=== PATIENT | male | born 1965 | race Caucasian/White ===

== ENCOUNTER → 2020-07-05 | Outpatient (CLI) | payer SELFPAY ==
[2020-07-05 09:59] LABS: HCT 48.4 % (39.0-53.0); HGB 15.5 gm/dL (13.0-17.5); MCH 29.1 pg (25.0-35.0); MCHC 32.1 g/dL (31.0-37.0); MCV 90.5 fL (80.0-100.0); Mean Platelet Volume 6.8; Platelet Count 209 k/uL (150-450); RBC 5.34 m/uL (4.30-5.90); RDW 13.5 % (11.5-15.5); WBC 8.2 k/uL (3.8-10.6)
== END | disposition home or self-care (01) ==
LOC: LABWHC1 08:43
PROVIDERS: ATTEND Surgery
DX: Z01.818 Encounter for other preprocedural examination (principal)
CPT/HCPCS: 36415; 85027

== ENCOUNTER 2020-07-11 09:01 | Day surgery (SDC) | payer OTHER ==
[2020-07-04 13:38] VITALS: BMI 33.5
[~2020-07-11 09:01] MED LIST: ACETAMINOPHEN TAB 500 MG TAB PO ONE; DEXAMETHASONE SOD PHOSPHATE 10 MG/ML 1 ML VIAL IV ONE; HEPARIN SODIUM,PORCINE 5,000 UNIT/ML 1 ML VIAL SQ ONE; LACTATED RINGERS 1,000 ML IV SCH; MIDAZOLAM 2 MG/2 ML VIAL IV PRN; SCOPOLAMINE 1.5MG/72HR PATCH TRANSDERM ONE
[2020-07-11] MEDS ORDERED: HEPARIN SODIUM,PORCINE 5,000 UNIT/ML 1 ML VIAL ONE (09:29)
[2020-07-11] MEDS ORDERED: ONDANSETRON 4 MG/2 ML VIAL ONE (09:29)
[2020-07-11] MEDS ORDERED: ACETAMINOPHEN TAB 500 MG TAB ONE (09:29)
[2020-07-11] MEDS ORDERED: LIDOCAINE 1% (10MG/ML) FOR IV START INTRADERMA ONE (09:51)
[2020-07-11] MEDS: ONDANSETRON 4 MG/2 ML VIAL IVP ONE ×2 (09:51→12:27)
[2020-07-11] MEDS ORDERED: LIDOCAINE 1% INJ 10MG/ML (20 ML MDV) ONE ×2 (10:08→11:01)
--- NOTE | 2020-07-11 10:42 | P.GSHP ---
History of Present Illness H&P Date: 07/11/20 Chief Complaint: Incisional hernia This a 55-year-old male who presents today for laparoscopic lysis pair of incisional hernia. Past Medical History Additional Past Medical History / Comment(s): Hernia History of Any Multi-Drug Resistant Organisms: None Reported Past Surgical History: Hernia Repair Past Anesthesia/Blood Transfusion Reactions: No Reported Reaction Smoking Status: Never smoker - Past Family History Mother Family Medical History: No Reported History Medications and Allergies Home Medications Medication Instructions Recorded Confirmed Type No Known Home Medications 07/04/20 07/11/20 History Allergies Allergy/AdvReac Type Severity Reaction Status Date / Time No Known Allergies Allergy Verified 07/11/20 09:26 Surgical - Exam Vital Signs Temp Pulse Resp BP Pulse Ox 97 F L 59 L 16 117/67 95 07/11/20 09:45 07/11/20 09:45 07/11/20 09:45 07/11/20 09:45 07/11/20 09:45 - General well developed, well nourished, no distress - ENT normal pinna - Neck no masses - Respiratory normal expansion - Cardiovascular Rhythm: regular - Abdomen 3 cm incisional hernia Abdomen: soft, non tender Assessment and Plan Assessment: Incisional hernia. We'll perform laparoscopic robotic-assisted repair.
[2020-07-11] MEDS ORDERED: ePHEDrine SULFATE/0.9% NACL/PF 50 MG/5 ML SYRINGE IV ONE (11:01)
[2020-07-11] MEDS ORDERED: SUCCINYLCHOLINE CHLORIDE VIAL 200 MG/10 ML VIAL IV ONE (11:01)
[2020-07-11] MEDS ORDERED: LIDOCAINE 2% SYG (PF) 100 MG/5 ML ONE (11:01)
[2020-07-11] MEDS ORDERED: PROPOFOL 10 MG/ML 20 ML VIAL IV ONE (11:01)
[2020-07-11] MEDS ORDERED: ROPIVACAINE 5 MG/ML 30 ML VIAL ONE (11:01)
[2020-07-11] MEDS ORDERED: NEOSTIGMINE 1 MG/ML 10 ML VIAL ONE (11:01)
[2020-07-11] MEDS ORDERED: MIDAZOLAM 2 MG/2 ML VIAL ONE (11:01)
[2020-07-11] MEDS ORDERED: GLYCOPYRROLATE 0.2 MG/ML 2 ML VIAL ONE (11:01)
[2020-07-11] MEDS ORDERED: fentaNYL (PF) 50 MCG/ML 2 ML AMP ONE (11:01)
[2020-07-11] MEDS ORDERED: ROCURONIUM BROMIDE 10 MG/ML 5 ML VIAL IV ONE (11:01)
--- NOTE | 2020-07-11 11:27 | P.ANPRN ---
Procedure Note - Anesthesia - Nerve Block Performed Bilateral Transversus Abdominis Single Time Out Performed: Yes (1002) Date of Procedure: 07/11/20 Procedure Start Time: 10:03 Procedure Stop Time: 10:16 Location of Patient: PreOp Indication: Acute Post-Operative Pain, Analgesia, Requested by Surgeon Specifically requested for management of pain by : Saleem Del Rosario Sedation Type: Sedate with meaningful contact maintained Preparation: Sterile Prep, Sterile Dressing Position: Supine Needle Types: Ryann Needle Gauge: 20 Ultrasound used to visualize needle placement: Yes Ultrasound used to observe medication spread: Yes Injectate: Other (see comment) (30 cc total, 15 cc ropivacaine 0.5% and 5 cc lidocaine 1% each side) Blood Aspirated: No Pain Paresthesia on Injection Noted: No Resistance on Injection: Normal Image Stored and Saved: Yes Events: Uneventful and Well Tolerated
[2020-07-11] MEDS ORDERED: LIDOCAINE 1%-EPI 1:100,000 20 ML VIAL SQ ONE (11:32)
[2020-07-11] MEDS ORDERED: LACTATED RINGERS 1,000 ML IV ONE (12:10)
--- NOTE | 2020-07-11 12:22 | P.OP ---
Date of Procedure: 07/11/20 Preoperative Diagnosis: Recurrent incisional hernia Postoperative Diagnosis: Recurrent incarcerated incisional hernia Procedure(s) Performed: Laparoscopic robotic-assisted repair of recurrent incarcerated incisional hernia Anesthesia: GROVER Surgeon: Saleem Del Rosario Estimated Blood Loss (ml): 5 Pathology: none sent Condition: stable Disposition: PACU Description of Procedure: The patient was placed on the operating table in the supine position. He received general anesthesia. His abdomen was prepped and draped usual fashion. Using a 5 mm optical trocar under direct visualization the peritoneal cavity was entered in the left upper quadrant. The abdomen was then insufflated. The laparoscope was placed back into the perineal cavity. Next a 8 mm robotic trocar was placed in the left lower quadrant and a 12 mm robotic trocar was placed in the left lateral position. The original 5 mm trocar was exchanged for a 8 mm robotic trocar. The patient's placed in the left side up position. And the patient was docked to the robot. The patient had a previous incisional hernia repaired near the umbilicus. The incisional hernia was visualized. The incarcerated omentum was dissected free using hook cautery. Using hook cautery the peritoneum over the incisional her rayo was excised. The fascial opening was repaired using 0V LOC suture. Next a piece of 11 cm round ventral light ST mesh was placed into the. Cavity and secured with 2 OV lock suture. The patient was undocked the robot. The needles were retrieved. The fascia of the 12 mm trocar site was closed with 0 Ethibond suture. Skin was closed interrupted 3-0 Monocryl suture. Dermabond dressings was applied. Patient tolerated procedure well and was sent to recovery room stable condition.
[2020-07-11 12:24] VITALS: TEMP 97.3
[2020-07-11] MEDS ORDERED: diphenhydrAMINE 50 MG/ML 1 ML VIAL IVP ONE (12:31)
[2020-07-11] MEDS: HYDROmorphone 0.5 MG/0.5 ML SYRINGE IVP PRN ×3 (12:35→12:53)
[2020-07-11 13:00] VITALS: RESP 16
[2020-07-11] MEDS ORDERED: HYDROcodone/APAP 5-325MG 1 EACH TAB ONE (13:15)
[2020-07-11] MEDS ORDERED: HYDROcodone/APAP 5-325MG 1 EACH TAB PO ONE (13:15)
[2020-07-11 13:48] VITALS: BP 110/65; PULSE 65
== END 2020-07-11 13:58 | disposition home or self-care (01) ==
LOC: OR 09:01
PROVIDERS: ATTEND Surgery
DX: K43.0 Incisional hernia with obstruction, without gangrene (principal); Z98.890 Other specified postprocedural states
CPT/HCPCS: 93005; 64488; 86900; 86901; 86850; 49657; C1781; J2250; J0330; J1200; J1644; J1100; J2710; J0690; J2405; J2001 ×2; J3010; J2795; J2704; J1170